=== PATIENT | female | born 1960 | race Two or more races ===

== ENCOUNTER → 2016-10-05 | Outpatient (CLI) | payer OTHER ==
[~2016-10-05] MED LIST: AMOX400S3 PO; IBUP100S7 PO; TYLETAB34 PO
--- NOTE | 2016-10-05 18:25 | RADRPT ---
EXAM DATE/TIME: 10/05/2016 09:49 [place] COMPARISON: No previous studies available for comparison. INDICATIONS : Right lower abdominal and pelvic pain. MEDICAL HISTORY : Right abdominal pain. Urinary tract infection - currently. SURGICAL HISTORY : Cholecystectomy. Tubal ligation. ENCOUNTER: Initial ACUITY: 1 month PAIN SCORE: 0/10 LOCATION: Right lower quadrant MEASUREMENTS: UTERUS: 6.3 x 3.0 x 4.3 cm ENDOMETRIAL STRIPE: 6 mm RIGHT OVARY: 3.0 x 1.4 x 3.5 cm LEFT OVARY: 2.9 x 1.8 x 1.5 cm FINDINGS: The endometrium stripe is somewhat prominent for a postmenopausal patient without hormone replacement . There is a fibroid within the lower uterine segment measuring 1.5 x 1.4 x 1.9 cm. The ovaries are n ormal bilaterally. No free fluid is noted within the cul-de-sac. CONCLUSION: 1. Slightly prominent endometrial stripe in a postmenopausal patient who is not on hormone replacemen t. Clinical correlation is recommended. 2. Small solid mass within the lower uterus segment consistent with probable fibroid measuring 1.5 x 1.4 x 1.9 cm. 3. Normal appearing ovaries bilaterally. 4. No free fluid within the cul-de-sac. Dwain Lopez MD on October 05, 2016 at 18:21 Board Certified Radiologist. This report was verified electronically.
== END ==
LOC: HRAD 08:40
PROVIDERS: ATTEND Family Medicine
DX: R10.31 Right lower quadrant pain (principal)
CPT/HCPCS: 76856